=== PATIENT | male | born 1985 ===

== ENCOUNTER 2016-12-21 16:53 | Emergency (ER) | payer MEDICAID, OTHER ==
[~2016-12-21] VITALS: Ht 177.8 cm; Wt 68.2 kg
[2016-12-21 16:54] VITALS: BP 139/86; PULSE 108; RESP 20; O2SAT 98
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
== END 2016-12-21 17:30 | disposition home or self-care (01) ==
LOC: SED 16:53
DX: S09.90XA Unspecified injury of head, initial encounter (principal); W01.198A Fall on same level from slipping, tripping and stumbling with subsequent striking against other object, initial encounter; Y93.01 Activity, walking, marching and hiking; Y92.828 Other wilderness area as the place of occurrence of the external cause; Y99.8 Other external cause status; H53.8 Other visual disturbances; M54.2 Cervicalgia; J45.909 Unspecified asthma, uncomplicated; F32.9 Major depressive disorder, single episode, unspecified; F17.200 Nicotine dependence, unspecified, uncomplicated